=== PATIENT | female | born 1970 | race Caucasian/White ===

== ENCOUNTER 2018-07-24 12:24 | Emergency (ER) | payer BC, OTHER ==
--- NOTE | 2018-07-24 13:07 | ER Document Report ---
ED Medical Screen (RME) - General Chief Complaint: Back Pain Stated Complaint: ABDOMINAL PAIN Time Seen by Provider: 07/24/18 12:54 TRAVEL OUTSIDE OF THE [place] IN LAST 30 DAYS: No - HPI Notes: 07/24/18 13:06 pain in the left buttocks area - Related Data Allergies/Adverse Reactions: miconazole nitrate [From Monistat 3] Allergy (Intermediate, Verified 07/24/18 12 :27) abcesses PLASTIC TAPE Allergy (Uncoded 06/17/16 09:24) BLISTERS ON SKIN Past Medical History - Social History Chew tobacco use (# tins/day): No Frequency of alcohol use: None Drug Abuse: None - Past Medical History Cardiac Medical History: Denies: Hx Heart Attack, Hx Hypertension Pulmonary Medical History: Reports: Hx Asthma, Hx Pneumonia Neurological Medical History: Denies: Hx Cerebrovascular Accident, Hx Seizures Renal/ Medical History: Denies: Hx Peritoneal Dialysis GI Medical History: Denies: Hx Hepatitis, Hx Hiatal Hernia, Hx Ulcer Infectious Medical History: Denies: Hx Hepatitis Past Surgical History: Reports: Hx Section - 1, Hx Cholecystectomy, Hx Orthopedic Surgery - right knee, Hx Tonsillectomy. Denies: Hx Hysterectomy, Hx Mastectomy, Hx Open Heart Surgery, Hx Pacemaker - Immunizations Hx Diphtheria, Pertussis, Tetanus Vaccination: Yes Review of Systems - Review of Systems Musculoskeletal: Back pain Physical Exam - Vital signs Vitals: Temp Pulse Resp BP Pulse Ox 98.1 F 93 18 145/97 H 98 07/24/18 12:28 07/24/18 12:28 07/24/18 12:28 07/24/18 12:28 07/24/18 12:28 - Respiratory Respiratory status: No respiratory distress Chest status: Nontender Breath sounds: Normal Chest palpation: Normal - Cardiovascular Rhythm: Regular Heart sounds: Normal auscultation Course - Vital Signs Vital signs: Temp Pulse Resp BP Pulse Ox 98.1 F 93 18 145/97 H 98 07/24/18 12:28 07/24/18 12:28 07/24/18 12:28 07/24/18 12:28 07/24/18 12:28 Doctor's Discharge - Discharge Referrals: ITZ RAMIREZ MD [Primary Care Provider] - Follow up as needed
[2018-07-24 13:49] LABS: APPEARANCE,URINE SLIGHTLY-CLOUDY; BILIRUBIN,URINE NEGATIVE (NEGATIVE); COLOR,URINE YELLOW; GLUCOSE, URINE NEGATIVE (NEGATIVE); KETONES,URINE NEGATIVE (NEGATIVE); LEUKOCYTE ESTERASE,URINE NEGATIVE (NEGATIVE); NITRITE,URINE NEGATIVE (NEGATIVE); PROTEIN,URINE NEGATIVE (NEGATIVE); URINE SPECIFIC GRAVITY 1.015; UROBILINOGEN,URINE NEGATIVE mg/dL (<2.0)
[2018-07-24] MEDS ORDERED: HYDROMORPHONE HCL INJ/PF 2 MG/ML AMPULE IV ONE ×2 (14:18→17:26)
[2018-07-24] MEDS ORDERED: NORMAL SALINE 1000 ML 1,000 ML IV ONE (14:18)
--- NOTE | 2018-07-24 14:24 | ER Document Report ---
ED General - General Chief Complaint: Back Pain Stated Complaint: ABDOMINAL PAIN Time Seen by Provider: 07/24/18 12:54 TRAVEL OUTSIDE OF THE [place] IN LAST 30 DAYS: No - HPI Notes: Patient is a 48-year-old female with no significant past medical history aside from internal hemorrhoid surgery/repair in March 2018 who presents to the ED complaining of nonspecific pain symptoms. Patient states that she feels like something "popped" inside of her. Patient states that she has had pain to her buttocks bilaterally that radiates up to her tailbone and inside of her anus. Patient states that it hurts to take a bowel movement as well, but has been having normal bowel movements. Patient states that this pain started somewhat suddenly Tuesday (3 days ago). Patient states that she has also started her menstrual cycle with some light bleeding Tuesday and does have some suprapubic discomfort. Patient states that she has no concern of STD or STI and has not had any other vaginal discharge or odor. She is otherwise been eating and drinking without difficulty. Patient states that the pain is sharp and she cannot pinpoint the exact location. Denies any headache, fever, neck pain, URI , sore throat, chest pain, palpitations, syncope, cough, shortness of breath, wheeze, dyspnea, nausea/vomiting/diarrhea, urinary retention, dysuria, hematuria , loss of control of bowel or bladder, numbness/tingling, saddle anesthesia, muscle paralysis/weakness, or rash. - Related Data Allergies/Adverse Reactions: miconazole nitrate [From Monistat 3] Allergy (Intermediate, Verified 07/24/18 12 :27) abcesses PLASTIC TAPE Allergy (Uncoded 06/17/16 09:24) BLISTERS ON SKIN Past Medical History - Social History Smoking Status: Never Smoker Chew tobacco use (# tins/day): No Frequency of alcohol use: None Drug Abuse: None Family History: Reviewed & Not Pertinent Patient has suicidal ideation: No Patient has homicidal ideation: No - Past Medical History Cardiac Medical History: Denies: Hx Heart Attack, Hx Hypertension Pulmonary Medical History: Reports: Hx Asthma, Hx Pneumonia Neurological Medical History: Denies: Hx Cerebrovascular Accident, Hx Seizures Renal/ Medical History: Denies: Hx Peritoneal Dialysis GI Medical History: Denies: Hx Hepatitis, Hx Hiatal Hernia, Hx Ulcer Infectious Medical History: Denies: Hx Hepatitis Past Surgical History: Reports: Hx Section - 1, Hx Cholecystectomy, Hx Orthopedic Surgery - right knee, Hx Tonsillectomy. Denies: Hx Hysterectomy, Hx Mastectomy, Hx Open Heart Surgery, Hx Pacemaker - Immunizations Hx Diphtheria, Pertussis, Tetanus Vaccination: Yes Review of Systems - Review of Systems -: Yes All other systems reviewed and negative Physical Exam - Vital signs Vitals: Temp Pulse Resp BP Pulse Ox 98.1 F 93 18 145/97 H 98 07/24/18 12:28 07/24/18 12:28 07/24/18 12:28 07/24/18 12:07/24/18 12:28 - Notes Notes: PHYSICAL EXAMINATION: witnessed by sheryl draper GENERAL: Well-appearing, well-nourished and in no acute distress. Pt does appear to be in discomfort. LUNGS: Breath sounds clear to auscultation bilaterally and equal. No wheezes rales or rhonchi. HEART: Regular rate and rhythm without murmurs, rubs, gallops. ABDOMEN: Soft, nondistended abdomen. No guarding, no rebound. No masses appreciated. Normal bowel sounds present. No CVA tenderness bilaterally. + minimal suprapubic tenderness. No pulsatile mass : No inguinal adenopathy. External genitalia without erythema, lesions, or masses. Vaginal mucosa pink, bloody scant discharge. Cervix parous, pink, and without discharge. Uterus is smooth. No adnexal tenderness. + tenderness to posterior wall pressure, reproduced symptoms. Rectal: No erythema, abscess, obvious fistula, or reproducible tenderness during exam. No impaction noted. No melena or hematochezia noted. Musculoskeletal: LE's b/l: FROM to passive/active. Strength 5+/5. No deficits noted. No bony tenderness of extremities. Back: FROM to passive/active. Strength 5+/5. No vertebral point tenderness, stepoffs, or deformities. No other bony tenderness, erythema, swelling, or ecchymosis. SLR negative b/l. + mild tenderness to the L-paraspinal mm b/l-- does not correlate with pain described. No SI jt tenderness. No foot drop Extremities: No cyanosis, clubbing, or edema b/l. Peripheral pulses 2+. Capillary refill less than 2 seconds. NEUROLOGICAL: Normal speech, normal gait. Normal sensory, motor exams. Reflexes 2+ b/l. PSYCH: Normal mood, normal affect. SKIN: Warm, Dry, normal turgor, no rashes or lesions noted. Course - Re-evaluation Re-evalutation: 07/24/18 17:30 This case has been reviewed with Dr. Friedman. Patient is currently afebrile with acceptable vital signs. She has no significant tachycardia, tachypnea, or hypoxia. Patient is nontoxic-appearing. She has been n.p.o. since 8 this morning aside from the p.o. contrast that was given for CT. CT scan demonstrates perianal soft tissue abscess. We will call general surgery for consult. Patient is in agreement. 07/24/18 18:16 Dr. Ledy coy'd the patient and does not believe this is "mabel-anal" as rectal exam did not elicit any of the described pain. He did review the CT and is not entirely impressed as she also does not have a white count or fever. He is still recommending outpatient antibiotic with discussion with OBGYN as well. He does not believe this to be a surgical issue at this time. I did call and speak with Dr. Monroy O[facility], who would like the patient on Cipro and anneliese'd in the office tomorrow. Patient is an afebrile, well-hydrated and 48-year-old female who presents to the ED with a possible abscess. Vitals are acceptable without any significant tachycardia, tachypnea, or hypoxia. PE is otherwise unremarkable. CBC, CMP, lipase, hCG, urinalysis, wet mount are grossly unremarkable for acute pathology. See CT scan report. Chlamydia and gonorrhea tests are pending, but patient states that she has not been sexually active and has only been with her who has been away currently. She is nontoxic-appearing and is able to tolerate p.o. without difficulty. No further labs or imaging warranted at this time. Patient to recheck with [employer] tomorrow as reviewed. Return to the ED otherwise with any other worsening/concerning symptoms. I will be sending her home with a prescription for Cipro as well as oxycodone. Patient is in agreement. - Vital Signs Vital signs: Temp Pulse Resp BP Pulse Ox 98.1 F 93 18 145/97 H 98 07/24/18 12:28 07/24/18 12:28 07/24/18 12:28 07/24/18 12:28 07/24/18 12:28 - Laboratory Result Diagrams: 07/24/18 14:44 07/24/18 14:44 Laboratory results interpreted by me: 07/24/18 07/24/18 07/24/18 13:10 14:44 14:44 RDW 14.7 H Chloride 108 H Urine Blood MODERATE H Discharge - Discharge Clinical Impression: Abscess Condition: Stable Disposition: HOME, SELF-CARE Instructions: Abscess ([facility]), Oral Narcotic Medication ([facility]), Clindamycin ([facility]) Additional Instructions: Keep the skin clean Wash with soap and water Tylenol/ibuprofen if needed Take medication as directed Monitor for any worsening symptoms Recheck with your PCM this week, but recheck with OBGYN tomorrow (Dr. Monroy) Return to the ED with any worsening symptoms and/or development of fever, headache, chest pain, palpitations, syncope, shortness of breath, trouble breathing, abdominal pain, n/v/d, abscess, purulent discharge, red streaks, worsening swelling, or other worsening symptoms that are concerning to you. Prescriptions: Clindamycin HCl [Cleocin 300 mg Capsule] 300 mg PO QID #40 capsule Oxycodone HCl/Acetaminophen [Percocet 5-325 mg Tablet] 1 tab PO QID #12 tab Forms: Elevated Blood Pressure Referrals: ITZ RAMIREZ MD [Primary Care Provider] - Follow up as needed THOMAS MONROY MD [ACTIVE STAFF] - Follow up tomorrow
[2018-07-24] MEDS ORDERED: ONDANSETRON HCL INJ/PF 4 MG/2 ML SDV IV ONE (14:44)
[2018-07-24 14:57] LABS: ABSOLUTE BASOPHILS # (AUTO) 0.1 10^3/uL (0.0-0.2); ABSOLUTE EOSINOPHILS # (AUTO) 0.4 10^3/uL (0.0-0.6); ABSOLUTE LYMPHOCYTES (AUTO) 1.9 10^3/uL (0.5-4.7); ABSOLUTE MONOCYTES (AUTO) 0.5 10^3/uL (0.1-1.4); ABSOLUTE NEUT (AUTO) 6.9 10^3/uL (1.7-8.2); BASOPHILS % (AUTO) 0.5 % (0-2); EOSINOPHILS % (AUTO) 3.8 % (0-6); HEMATOCRIT 37.4 % (36.0-47.0); HEMOGLOBIN 12.5 g/dL (12.0-15.5); MEAN CORPUSCULAR HEMOGLOBIN 28.4 pg (27.0-33.4); MEAN CORPUSCULAR HGB CONC 33.5 g/dL (32.0-36.0); MEAN CORPUSCULAR VOLUME 85 fl (80-97); MONOCYTES % (AUTO) 4.8 % (3-13); PLATELET COUNT 298 10^3/uL (150-450); RED CELL DISTRIBUTION WIDTH 14.7 % (11.5-14.0); SEGMENTED NEUTROPHILS % (AUTO) 70.9 % (42-78); TOTAL CELLS COUNTED % (AUTO) 100 %; WHITE BLOOD COUNT 9.7 10^3/uL (4.0-10.5)
[2018-07-24 15:14] LABS: ALANINE AMINOTRANSFERASE 15 U/L (9-52); ALBUMIN 3.7 g/dL (3.5-5.0); ALKALINE PHOSPHATASE 106 U/L (38-126); ANION GAP 10 (5-19); ASPARTATE AMINO TRANSFERASE 24 U/L (14-36); BILIRUBIN,DIRECT 0.3 mg/dL (0.0-0.4); BILIRUBIN,TOTAL 0.7 mg/dL (0.2-1.3); BLOOD UREA NITROGEN 12 mg/dL (7-20); CALCIUM 8.7 mg/dL (8.4-10.2); CARBON DIOXIDE 23 mmol/L (22-30); CHLORIDE 108 mmol/L (98-107); GLUCOSE 83 mg/dL (75-110); LIPASE 55.4 U/L (23-300); POTASSIUM 4.3 mmol/L (3.6-5.0); SODIUM 140.8 mmol/L (137-145); TOTAL PROTEIN 6.5 g/dL (6.3-8.2)
--- NOTE | 2018-07-24 17:19 | RADIOLOGY REPORT (SQ) ---
EXAM DESCRIPTION: CT ABD/PELVIS WITH IV ORAL COMPLETED DATE/TIME: 07/24/2018 5:02 pm REASON FOR STUDY: lower abd/pelv pain COMPARISON: None. TECHNIQUE: CT scan of the abdomen and pelvis performed using helical scanning technique with dynamic intravenous contrast injection. Oral contrast is present. Images reviewed with lung, soft tissue, and bone windows. Reconstructed coronal and sagittal MPR images reviewed. Delayed images for evaluati on of the urinary system also acquired. All images stored on PACS. All CT scanners at this facility use dose modulation, iterative reconstruction, and/or weight based d osing when appropriate to reduce radiation dose to as low as reasonably achievable (ALARA). [facility]: Dose Right [facility]: CareDose [facility]: Dose Right [facility]: Teradose 4D [facility]: Cometa CONTRAST TYPE AND DOSE: 100 mL Omnipaque 350- low osmolar. RENAL FUNCTION: BUN 12; creatinine 0.69 RADIATION DOSE: CT Rad equipment meets quality standard of care and radiation dose reduction techniq ues were employed. CTDIvol: 21.1 - 21.1 mGy. DLP: 2454 mGy-cm.. LIMITATIONS: None. FINDINGS: LOWER CHEST: No significant findings. No nodules or infiltrates. LIVER: Normal size. No masses. No dilated ducts. SPLEEN: Normal size. No focal lesions. PANCREAS: No masses. No significant calcifications. No adjacent inflammation or peripancreatic fluid collections. Pancreatic duct not dilated. GALLBLADDER: Surgically absent. ADRENAL GLANDS: No significant masses or asymmetry. RIGHT KIDNEY AND URETER: No solid masses. No significant calcifications. No hydronephrosis or hyd roureter. LEFT KIDNEY AND URETER: No solid masses. No significant calcifications. No hydronephrosis or hydr oureter. AORTA AND VESSELS: No aneurysm. No dissection. Renal arteries, SMA, celiac without stenosis. RETROPERITONEUM: No retroperitoneal adenopathy, hemorrhage or masses. BOWEL AND PERITONEAL CAVITY: No masses or inflammatory changes. No free fluid or peritoneal masses. APPENDIX: Normal. PELVIS: No mass. No free fluid. Normal bladder. ABDOMINAL WALL: No masses. No hernias. BONES: No significant or acute findings. OTHER: There is a 1.4 x 2.2 x 3.7 cm multilocular rim enhancing fluid collection within the perianal soft tissues. IMPRESSION: 1. No evidence of acute intra-abdominal infectious/inflammatory process. 2. 1.4 x 2.2 x 3.7 cm multilocular fluid collection within the perianal soft tissues, likely on the basis of abscess. TECHNICAL DOCUMENTATION: JOB ID: [id number] Quality ID # [id number]: Final reports with documentation of one or more dose reduction techniques (e.g., Au tomated exposure control, adjustment of the mA and/or kV according to patient size, use of iterative reconstruction technique) 2010 [employer]- All Rights Reserved Reading location - IP/workstation name: [email or web address]
[2018-07-24 17:46] LABS: BACTERIA (WET MOUNT) 4+ BACTERIA SEEN; RBCS (WET MOUNT) 1+ RBCS SEEN; T.VAGINALIS (WET MOUNT) NO TRICHOMONAS SEEN; WBCS (WET MOUNT) 1+ WBCS SEEN; YEAST (WET MOUNT) NO YEAST SEEN
[2018-07-24 18:38] VITALS: BP 114/76
[2018-07-24 19:14] LABS: CHLAM PCR NOT DETECTED (NOT DETECT); GON PCR NOT DETECTED (NOT DETECT)
--- NOTE | 2018-07-24 21:00 | PDOC CONSULTATION ---
Consultation Consult Date: 07/24/18 Consult reason:: Perianal abscess History of Present Illness Admission Date/PCP: ITZ RAMIREZ Patient complains of: Perineal pain History of Present Illness: GERMAINE TORRES is a 48 year old female resents to the emergency department complaining of a several day history of perineal pain, difficulty balance, no fever, no drainage history of trauma. She is several months status post hemorrhoidectomy. Patient seen emergency department where she was found to have tenderness along the posterior vaginal vault during pelvic exam. A CT scan of the abdomen and pelvis was obtained just in the anterior rectal wall. Surgery was consulted. Past Medical History Cardiac Medical History: Denies: Myocardial Infarction, Hypertension Pulmonary Medical History: Reports: Asthma, Pneumonia Neurological Medical History: Denies: Seizures GI Medical History: Denies: Hepatitis, Hiatal Hernia Hematology: Denies: Anemia, Sickle Cell Disease Past Surgical History Past Surgical History: Reports: Section - 1, Cholecystectomy, Orthopedic Surgery - right knee, Tonsillectomy Denies: Amputation, Hysterectomy, Mastectomy, Pacemaker Social History Smoking Status: Never Smoker Frequency of Alcohol Use: None Hx Recreational Drug Use: No Family History Family History: None, Reviewed & Not Pertinent Parental Family History Reviewed: Yes Children Family History Reviewed: Yes Sibling(s) Family History Reviewed.: Yes Medication/Allergy Home Medications: Albuterol 2 puff IH Q4H PRN 07/19/11 Esomeprazole Magnesium [Nexium] 40 mg PO DAILY 06/17/16 Hyoscyamine Sulfate 0.125 mg PO ASDIR PRN 06/17/16 Phentermine HCl 37.5 mg PO DAILY 06/17/16 Oxycodone HCl/Acetaminophen [Percocet 5-325 mg Tablet] 1 tab PO Q4H PRN #15 tab 06/24/16 Clindamycin HCl [Cleocin 300 mg Capsule] 300 mg PO QID #40 capsule 07/24/18 Oxycodone HCl/Acetaminophen [Percocet 5-325 mg Tablet] 1 tab PO QID #12 tab 06/01 Allergies/Adverse Reactions: miconazole nitrate [From Monistat 3] Allergy (Intermediate, Verified 07/24/18 12 :27) abcesses PLASTIC TAPE Allergy (Uncoded 06/17/16 09:24) BLISTERS ON SKIN Review of Systems Constitutional: PRESENT: as per HPI Eyes: ABSENT: visual disturbances Ears: ABSENT: hearing changes Cardiovascular: ABSENT: chest pain, dyspnea on exertion, edema, orthropnea, palpitations Physical Exam Vital Signs: Temp Pulse Resp BP Pulse Ox 97.9 F 90 16 114/76 99 07/24/18 18:30 07/24/18 18:30 07/24/18 18:30 07/24/18 18:30 07/24/18 18:30 Intake & Output 07/23/18 07/24/18 07/25/18 06:59 06:59 06:59 Intake Total 1000 Balance 1000 Weight 114.5 kg General appearance: PRESENT: no acute distress Head exam: PRESENT: normocephalic Eye exam: PRESENT: EOMI GI/Abdominal exam: PRESENT: other - Soft nontender no peritoneal signs no rigidity Rectal exam: PRESENT: other - Patient rolled in the left lateral cubitus position. Perianal tissue unremarkable. There is scarring consistent with previous hemorrhoidectomy. Rectal tone is normal. Sphincter chair mender is normal. Patient has no exquisite perianal tenderness; anal exam performed using pinky then index finger and there is no exquisite perianal or anal canal tenderness. I did not digitalize the vagina as this was previously done because of patient great distress including tears. Psychiatric exam: PRESENT: anxious Results Laboratory Results: 07/24/18 14:44 07/24/18 14:44 07/24/18 07/24/18 07/24/18 13:10 14:44 14:44 WBC 9.7 RBC 4.40 Hgb 12.5 Hct 37.4 MCV 85 MCH 28.4 MCHC 33.5 RDW 14.7 H Plt Count 298 Seg Neutrophils % 70.9 Lymphocytes % 20.0 Monocytes % 4.8 Eosinophils % 3.8 Basophils % 0.5 Absolute Neutrophils 6.9 Absolute Lymphocytes 1.9 Absolute Monocytes 0.5 Absolute Eosinophils 0.4 Absolute Basophils 0.1 Sodium 140.8 Potassium 4.3 Chloride 108 H Carbon Dioxide 23 Anion Gap 10 BUN 12 Creatinine 0.69 Est GFR ( Amer) > 60 Est GFR (Non-Af Amer) > 60 Glucose 83 Calcium 8.7 Total Bilirubin 0.7 AST 24 ALT 15 Alkaline Phosphatase 106 Total Protein 6.5 Albumin 3.7 Lipase 55.4 Serum HCG, Qual Urine Color YELLOW Urine Appearance SLIGHTLY-CLOUDY Urine pH 5.0 Ur Specific [place] 1.015 Urine Protein NEGATIVE Urine Glucose (UA) NEGATIVE Urine Ketones NEGATIVE Urine Blood MODERATE H Urine Nitrite NEGATIVE Ur Leukocyte Esterase NEGATIVE Urine WBC (Auto) 3 Urine RBC (Auto) 0 07/24/18 14:44 WBC RBC Hgb Hct MCV MCH MCHC RDW Plt Count Seg Neutrophils % Lymphocytes % Monocytes % Eosinophils % Basophils % Absolute Neutrophils Absolute Lymphocytes Absolute Monocytes Absolute Eosinophils Absolute Basophils Sodium Potassium Chloride Carbon Dioxide Anion Gap BUN Creatinine Est GFR ( Amer) Est GFR (Non-Af Amer) Glucose Calcium Total Bilirubin AST ALT Alkaline Phosphatase Total Protein Albumin Lipase Serum HCG, Qual NEGATIVE Urine Color Urine Appearance Urine pH Ur Specific [place] Urine Protein Urine Glucose (UA) Urine Ketones Urine Blood Urine Nitrite Ur Leukocyte Esterase Urine WBC (Auto) Urine RBC (Auto) Impressions: Abdomen/Pelvis CT 07/24/18 00:00 IMPRESSION: 1. No evidence of acute intra-abdominal infectious/inflammatory process. 2. 1.4 x 2.2 x 3.7 cm multilocular fluid collection within the perianal soft tissues, likely on the basis of abscess. Assessment & Plan - Diagnosis (1) Abscess Is this a current diagnosis for this admission?: Yes Plan: Impression: Pain in the perineum; exact etiology uncertain. Patient has no fever no leukocytosis and no clinical manifestations of perianal or anal canal infection. Her CT scan shows a 2 cm hypodense area along the posterior vaginal wall in continuity with the anterior rectal wall. There is no edema within the adjacent tissues. Therefore I do not believe the patient needs operative intervention tonight. This may be a Bartholin cyst infection or some other posterior vaginal wall issue. Recommendations: 1. No indication for surgery tonight 2. Suggest follow-up with [employer]ELOP[employer] after a short empiric course of p.o. antibiotics. 3. Follow-up with general surgery on a as needed basis.
== END 2018-07-24 18:53 | disposition home or self-care (01) ==
LOC: ER 12:24
DX: K61.0 Anal abscess (principal); M54.9 Dorsalgia, unspecified; R10.9 Unspecified abdominal pain; Z90.49 Acquired absence of other specified parts of digestive tract
CPT/HCPCS: 96376; 99284; 96361; 96374; 96375; 36415; 87210; 83690; 84703; 85025; 81025; 80053; 81001; 87491; 87591; 74177; J1170; J2405; J7030